=== PATIENT | male | born 1955 | race African-American/Black ===

== ENCOUNTER 2017-04-01 08:46 | Emergency (ER) | payer SELFPAY ==
[~2017-04-01] VITALS: Ht 175.3 cm; Wt 90.0 kg
[2017-04-01 08:48] VITALS: BP 118/82; PULSE 78; RESP 20; TEMP 97; O2SAT 95
[2017-04-01] MEDS ORDERED: IBUP800T23 PO (09:14)
[2017-04-01] MEDS ORDERED: ROBA500T PO (09:14)
[2017-04-01] MEDS ORDERED: METHOCARBAMOL 500 MG TAB PO ONE (09:15)
[2017-04-01] MEDS ORDERED: IBUPROFEN 800 MG TAB PO ONE (09:15)
--- NOTE | 2017-04-01 09:15 | PD ---
HPI Chief Complaint: Back/ Neck Pain or Injury Time Seen by Provider: 09:12 Travel History International Travel<30 days: No Contact w/Intl Traveler<30days: No Traveled to known affect area: No History of Present Illness HPI 61-year-old male presents emergency Department with complaint of low back pain and right upper back pain after slipping on a wet floor and falling backwards yesterday. He reports hitting the back of his head and denies loss of consciousness. Denies anticoagulants. Denies headache, lightheadedness, dizziness. Denies focal deficits or weakness. Denies confusion, disorientation , change in mentation. Denies encopresis, incontinence, saddle anesthesias. Denies paresthesias, loss of sensation, decreased strength all extremities. Reports decreased range of motion of the right shoulder secondary to pain. Denies chest pain, shortness of breath, abdominal pain, nausea, vomiting. Denies IV drug use or cancer. Has taken ibuprofen for symptom management. No known allergies. Has no medical complaints. No other modifying factors or associated signs and symptoms. PFSH Past Medical History Arthritis: No Cancer: No Cardiovascular Problems: No Endocrine: No Genitourinary: No Immune Disorder: No Neurologic: No Psychiatric: No Respiratory: No Past Surgical History Abdominal Surgery: No Cardiac Surgery: No Ear Surgery: No Endocrine Surgery: No Eye Surgery: No Genitourinary Surgery: No Gynecologic Surgery: No Oral Surgery: No Thoracic Surgery: No Other Surgery: Yes Social History Alcohol Use: No Tobacco Use: No Substance Use: No Allergies-Medications (Allergen,Severity, Reaction): Coded Allergies: No Known Allergies (Unverified , 05/07/14) Reported Meds & Prescriptions Reported Meds & Active Scripts Active Ibuprofen 800 Mg Tab 800 Mg PO Q8H PRN Robaxin (Methocarbamol) 500 Mg Tab 500 Mg PO QID PRN Review of Systems Except as stated in HPI: all other systems reviewed are Neg Physical Exam Narrative GENERAL: Well-nourished, well-developed male patient, in no acute distress SKIN: Warm and dry. HEAD: Atraumatic. Normocephalic. No facial or scalp abrasions or lacerations noted. EYES: Pupils equal and round at 3 mm with brisk reaction. No scleral icterus. No injection or drainage. No raccoon eyes. No orbital tenderness on palpation bilaterally. ENT: Mucosa pink and moist. No erythema or exudates. No uvular edema. No uvular , palatal, or tonsillar deviation. Airway patent. Nares without nasal blood, purulent drainage or septal hematoma. No rhinorrhea. EARS: Bilateral pinnae and external canals appear within normal limits. Bilateral tympanic membranes without erythema, dullness, hemotympanum or perforation. No otorrhea. No zaman signs. NECK: Moving freely. Trachea midline. No lymphadenopathy. Active rotation of the neck greater than 45 left and right. No midline point tenderness on palpation of the cervical spine. No obvious deformities. CHEST: Nontender throughout without deformity or crepitance. No retractions or use of accessory muscles. CARDIOVASCULAR: Regular rate and rhythm. No murmur appreciated. RESPIRATORY: No accessory muscle use. Clear to auscultation. Breath sounds equal bilaterally. GASTROINTESTINAL: Abdomen soft, non-tender, nondistended. Hepatic and splenic margins not palpable. Bowel sounds are active 4 quadrants. MUSCULOSKELETAL: Left shoulder with full range of motion and greater than 45 abduction; joint stable; shoulders equal; no obvious deformity; without erythema , edema, ecchymosis. Bilateral lower extremities supple and non-tense with 2+ pedal pulses and sensory intact; with full range of motion and 5/5 strength. Active dorsiflexion and extension of bilateral feet. Bilateral straight leg raise is negative for low back pain. Ambulatory in room with normal gait. Sitting up in bed at 90. No obvious deformities. No clubbing. No cyanosis. No edema. BACK: No midline point tenderness on palpation of the lumbar or thoracic spine. Tenderness on palpation of left lumbar paraspinal/iliosacral area. Reducible tenderness to the left trapezius muscle over the scapula area. No obvious deformities. NEUROLOGICAL: Awake and alert. Oriented 3. No obvious cranial nerve deficits. Motor grossly within normal limits. Normal speech. No midline drift. No ataxia. Moves all extremities. 5/5 strength to all extremities. Sensory intact. PSYCHIATRIC: Appropriate mood and affect; insight and judgment normal. Data Data Last Documented VS Vital Signs Date Time Temp Pulse Resp B/P Pulse Ox O2 Delivery O2 Flow Rate FiO2 04/01/17 08:48 97.0 78 20 118/82 95 Room Air Orders Ibuprofen (Motrin) (04/01/17 09:15) Methocarbamol (Robaxin) (04/01/17 09:15) [facility] Medical Decision Making Medical Screen Exam Complete: Yes Emergency Medical Condition: Yes Medical Record Reviewed: Yes Differential Diagnosis Fall, low back strain, trapezius muscle strain, contusion Narrative Course 61-year-old male with low back strain and right trapezius muscle strain after a mechanical fall yesterday. The patient admits to hitting their head, but denies loss of consciousness. Denies nausea, vomiting. On physical exam the patient is without raccoon eyes, zaman signs, rhinorrhea, or hemotympanum. I do not suspect open or depressed skull fracture, and the patient has no signs of basilar skull fracture. [place] CT Head Injury Rule suggests a head CT is not necessary for this patient and clears the patient for head injury without imaging. Denies neck pain. [place] C-Spine Rule suggests the C-Spine can be cleared clinically of fracture, and imaging is not required. There is no midline point tenderness on palpation of the cervical spine. The patient is able to actively rotate the neck 45 left and right. The patient is sitting up in bed at 90. The patient is ambulatory. I do not suspect fracture, dislocation, joint separation of the right shoulder and do not feel imaging is necessary at this time. Ibuprofen and Robaxin administered in the ER. Ibuprofen and Robaxin prescribed for him. Patient verbalizes understanding and agreement with treatment plan. Patient is medically cleared and stable for discharge. Discussed reasons to return to the emergency department. Instructed patient to follow up with primary care provider. Patient agrees with treatment plan. The patients vital signs are stable and the patient is stable for outpatient follow-up and treatment. Patient discharged home, stable and in no acute distress. Diagnosis Primary Impression: Low back strain Qualified Code: S39.012A - Low back strain, initial encounter Additional Impression: Trapezius muscle strain Qualified Code: S46.811A - Trapezius muscle strain, right, initial encounter Referrals: Primary Care Physician Patient Instructions: Fall Prevention (ED), General Instructions, Low Back Strain (ED), Muscle Strain (ED) Additional Instructions: Tylenol or ibuprofen as directed and as needed for pain Robaxin as prescribed and as needed for muscle spasms Heating pad and/or ice to affected area to reduce pain Avoid aggravating activities; increase activity as tolerated Follow-up with primary care provider Return to emergency department immediately with worsening of symptoms Med/Other Pt SpecificInfo: Prescription(s) given Scripts Ibuprofen 800 Mg [id number] Mg PO Q8H PRN (PAIN SCALE 1 TO 10) #20 TAB Ref 0 Prov:Mary Rojas 04/01/17 Methocarbamol (Robaxin)500 Mg [id number] Mg PO QID PRN (MUSCLE SPASM) #30 TAB Ref 0 Prov:Mary Rojas 04/01/17 Disposition: 01 DISCHARGE HOME Condition: Stable Mary Rojas Apr 01, 2017 09:15
== END 2017-04-01 09:29 | disposition home or self-care (01) ==
LOC: NEPK 08:46
DX: S39.012A Strain of muscle, fascia and tendon of lower back, initial encounter (principal); S46.811A Strain of other muscles, fascia and tendons at shoulder and upper arm level, right arm, initial encounter; W01.0XXA Fall on same level from slipping, tripping and stumbling without subsequent striking against object, initial encounter
CPT/HCPCS: 99283